=== PATIENT | male | born 1980 | race Caucasian/White ===

== ENCOUNTER 2018-04-23 10:54 | Emergency (ER) | payer OTHER ==
[2018-04-23] MEDS ORDERED: LIDOCAINE 1%/EPINEPHRINE INJ 20 ML VIAL ONE (11:30)
[2018-04-23] MEDS ORDERED: LIDOCAINE 1%/EPINEPHRINE INJ 20 ML VIAL INJ ONE (11:31)
[2018-04-23] MEDS ORDERED: MORPHINE SULFATE 10 MG/ML INJ ONE (11:42)
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
[2018-04-23] MEDS ORDERED: MORPHINE SULFATE 10 MG/ML INJ IV ONE ×2 (11:55→12:25)
--- NOTE | 2018-04-23 12:33 | RADIOLOGY REPORT (SQ) ---
EXAM DESCRIPTION: KNEE LEFT 4 VIEW COMPLETED DATE/TIME: 04/23/2018 12:18 pm REASON FOR STUDY: 15, chainsaw cut above knee COMPARISON: None. NUMBER OF VIEWS: Four views. TECHNIQUE: AP, lateral, and both oblique radiographic images acquired of the left knee. LIMITATIONS: None. FINDINGS: MINERALIZATION: Normal. BONES: No acute fracture or dislocation. No worrisome bone lesions. JOINT: No effusion. SOFT TISSUES: No soft tissue swelling. No radio-opaque foreign body. OTHER: No other significant finding. IMPRESSION: NEGATIVE STUDY OF THE LEFT KNEE. NO RADIOGRAPHIC EVIDENCE OF ACUTE INJURY. TECHNICAL DOCUMENTATION: JOB ID: [id number] [email or web address]- All Rights Reserved Reading location - IP/workstation name: [email or web address]
[2018-04-23] MEDS ORDERED: BACITRACIN ZINC OINTMENT 15 GM TP ONE (12:51)
[2018-04-23] MEDS ORDERED: CEPHALEXIN 500 MG CAPSULE PO ONE (12:51)
[2018-04-23 13:07] VITALS: BP 139/86
== END 2018-04-23 13:15 | disposition home or self-care (01) ==
LOC: ER 10:54
DX: S71.112A Laceration without foreign body, left thigh, initial encounter (principal); W29.3XXA Contact with powered garden and outdoor hand tools and machinery, initial encounter; Y93.H9 Activity, other involving exterior property and land maintenance, building and construction; Y99.0 Civilian activity done for income or pay
CPT/HCPCS: 99283; 73564; 12002; L1830; J3490; J2270

== ENCOUNTER 2018-05-19 12:55 | Emergency (ER) | payer SELFPAY ==
--- NOTE | 2018-05-19 13:24 | ER Document Report ---
ED General - General Chief Complaint: Overdose Stated Complaint: OVERDOSE Time Seen by Provider: 05/19/18 13:01 Mode of Arrival: Stretcher Information source: Patient - HPI Patient complains to provider of: Overdose Onset: Other - 37-year-old man with a past medical history significant for cocaine addiction and abuse in the past that presents for evaluation of an accidental overdose of what he thought was Percocet. Notes that he met a stefano at the [employer] while attempting to go to [place] for work, he was having back pain which she has chronically, the gentleman noted that he had some Percocet which might help with his symptoms, he subsequently snorted what was supposed to be $20 worth of Percocet however thereafter does not recall what happened, he woke up and had a syringe near his arm which he says he is never done before. Since that time he is feeling okay. Denies any other symptoms at this time any desire to harm himself or intent. - Related Data Allergies/Adverse Reactions: No Known Allergies Allergy (Unverified 04/23/18 12:09) Past Medical History - General Information source: Patient - Social History Smoking Status: Never Smoker Frequency of alcohol use: None Drug Abuse: None Family History: Reviewed & Not Pertinent Patient has suicidal ideation: No Patient has homicidal ideation: No Renal/ Medical History: Denies: Hx Peritoneal Dialysis Review of Systems - Review of Systems -: Yes All other systems reviewed and negative Physical Exam - Vital signs Vitals: Temp Pulse Resp BP Pulse Ox 97.8 F 95 14 129/83 H 98 05/19/18 13:14 05/19/18 13:14 05/19/18 13:14 05/19/18 13:14 05/19/18 13:14 - General General appearance: Appears well In distress: None - HEENT Head: Normocephalic Eyes: Normal Conjunctiva: Normal Cornea: Normal Extraocular movements intact: Yes Eyelashes: Normal Pupils: PERRL - Respiratory Respiratory status: No respiratory distress Chest status: Nontender Breath sounds: Normal Chest palpation: Normal - Cardiovascular Rhythm: Regular Heart sounds: Normal auscultation Murmur: No - Abdominal Inspection: Normal Distension: No distension Tenderness: Nontender - Back Back: Normal - Extremities General upper extremity: Normal inspection, Nontender, Normal ROM, Normal strength General lower extremity: Normal inspection, Nontender, Normal ROM, Normal strength - Neurological Neuro grossly intact: Yes Cognition: Normal Orientation: AAOx4 [place] Coma Scale Eye Opening: Spontaneous [place] Coma Scale Verbal: Oriented [place] Coma Scale Motor: Obeys Commands [place] Coma Scale Total: 15 Speech: Normal Cranial nerves: Normal Motor strength normal: LUE, RUE, LLE, RLE - Psychological Associated symptoms: Normal affect Course - Re-evaluation Re-evalutation: 05/19/18 14:12 37-year-old man that presents after an accidental overdose having snorted Percocet. He notes that he is taking narcotics in the past and not have very overdose. Denies any desire to harm himself. Denies any desire to harm anyone else. Did receive Narcan in the field. Will plan for an observation period in the emergency department with reassessment and probable discharge. 05/19/18 14:59 Patient underwent an observation period in the emergency department in which he was hemodynamically stable without any desaturations and had a normal level of consciousness. It is likely that he took some fentanyl-containing product. He denies any self-injurious intent it was accidental in nature. Because of his well appearance and response appropriately after administration of naloxone will plan for discharge home with return precautions notably there is any indication for IVC at this time. - Vital Signs Vital signs: Temp Pulse Resp BP Pulse Ox 97.8 F 95 23 H 129/83 H 99 05/19/18 13:14 05/19/18 13:14 05/19/18 13:28 05/19/18 13:14 05/19/18 13:28 Discharge - Discharge Condition: Good Disposition: HOME, SELF-CARE Instructions: Instructions for Home Care Following a Drug Overdose ([facility]) Additional Instructions: Your seen today in the emergency department after accidentally snorting too much heroin. You should follow-up with whatever support system he like to use moving forward , narcotics anonymous or whatever you choose.
[2018-05-19 14:32] VITALS: BP 110/82
== END 2018-05-19 14:32 | disposition home or self-care (01) ==
LOC: ER 12:55
DX: F11.10 Opioid abuse, uncomplicated (principal); T50.901A Poisoning by unspecified drugs, medicaments and biological substances, accidental (unintentional), initial encounter; X58.XXXA Exposure to other specified factors, initial encounter
CPT/HCPCS: 99284

== ENCOUNTER 2018-05-20 16:30 | Emergency (ER) | payer SELFPAY ==
[2018-05-20 16:35] VITALS: BP 115/65
[2018-05-20] MEDS ORDERED: DOXYCYCLINE HYCLATE 100 MG TABLET PO ONE (16:58)
--- NOTE | 2018-05-20 16:58 | ER Document Report ---
HPI - HPI Patient complains to provider of: insect bites Onset: This morning Quality of pain: Other - sore Severity: Moderate Pain Level: 3 Context: Patient presents emergency department with complaints of multiple insect bites. Patient reports this started a few days ago. 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 Patient reports he was at home H yesterday for overdose from fentanyl. He reports history of IV drug use. Reports he has been evaluated for HIV within the past 6 months and he was negative. Denies other symptoms such as fever vomiting diarrhea. pt is insisting on oral antibiotics Associated Symptoms: None Exacerbated by: Denies Relieved by: Denies Similar symptoms previously: No Recently seen / treated by doctor: Yes Past Medical History - General Information source: Patient - Social History Smoking Status: Current Every Day Smoker Cigarette use (# per day): Yes Frequency of alcohol use: Occasional Drug Abuse: Heroin, Other - iv fentanyl Occupation: tree Family History: Reviewed & Not Pertinent Patient has suicidal ideation: No Patient has homicidal ideation: No - Medical History Medical History: Negative Renal/ Medical History: Denies: Hx Peritoneal Dialysis Surgical Hx: Negative Vertical Provider Document - CONSTITUTIONAL Agree With Documented VS: Yes Exam Limitations: No Limitations General Appearance: WD/WN, No Apparent Distress - INFECTION CONTROL TRAVEL OUTSIDE OF THE [place] IN LAST 30 DAYS: No - HEENT HEENT: Atraumatic, Normocephalic. negative: Conjuctival Injection, Pharyngeal Erythema - NECK Neck: Normal Inspection, Supple - RESPIRATORY Respiratory: Breath Sounds Normal - CARDIOVASCULAR Cardiovascular: Regular Rate - MUSCULOSKELETAL/EXTREMETIES Musculoskeletal/Extremeties: MAEW, FROM, Non-Tender - NEURO Level of Consciousness: Awake, Alert, Appropriate Motor/Sensory: No Motor Deficit - DERM Integumentary: Warm, Dry Adult Front & Back Diagram: 1 - small folliculitis right nare, not fluctuant no induration 2 - Folliculitis no warmth not fluctuant no induration 3 - Several small circular discolored areas no pustules no warmth no discharge not fluctuant no induration Course - Re-evaluation Re-evalutation: 05/20/18 17:03 Dr. Wendi Melo in to assess reports its folliculitis and treat with Doxy. Patient informed. Dictation of this chart was performed using voice recognition software; therefore, there may be some unintended grammatical errors. - Vital Signs Vital signs: Temp Pulse Resp BP Pulse Ox 98 F 78 18 115/65 99 05/20/18 16:34 05/20/18 16:34 05/20/18 16:34 05/20/18 16:34 05/20/18 16:34 Discharge - Discharge Clinical Impression: Folliculitis Condition: Stable Disposition: HOME, SELF-CARE Instructions: Doxycycline ([facility]), Folliculitis ([facility]) Additional Instructions: *You have been treated for folliculitis *Take medication as prescribed *Monitor your skin for signs of infection such as increasing pain, redness, swelling, warmth *Keep the areas clean *Follow up with a primary care provider within one week *Return to ED for signs of infection, worsening condition, changes, needs Prescriptions: Doxycycline Monohydrate [Monodox] 100 mg PO BID #20 capsule
== END 2018-05-20 17:11 | disposition home or self-care (01) ==
LOC: ER 16:30
DX: L73.9 Follicular disorder, unspecified (principal); F17.210 Nicotine dependence, cigarettes, uncomplicated; F11.10 Opioid abuse, uncomplicated
CPT/HCPCS: 99281

== ENCOUNTER 2018-12-28 02:47 | Emergency (ER) | payer OTHER ==
--- NOTE | 2018-12-28 04:00 | ER Document Report ---
Addendum entered and electronically signed by DEEDEE GUZMAN LCSWA 12/29/18 14:44: Discharge - Discharge Clinical Impression: Suicidal ideations, Renal insufficiency, Bipolar 1 disorder, Substance abuse Contusion of rib on right side Qualifiers: Encounter type: initial encounter Qualified Code(s): S20.211A - Contusion of right front wall of thorax, initial encounter Condition: Stable Disposition: HOME, SELF-CARE Additional Instructions: You have been evaluated both medical and behavioral health teams have been deemed appropriate for discharge. You have been provided 3 days worth of your home medications: Seroquel 400 mg nightly and 200 every morning, Paxil 30 mg twice daily, Trileptal 300 mg 3 times daily and gabapentin 300 mg 3 times daily; take as directed and follow-up with your outpatient mental health provider. Also been provided a local resource list of area providers including mobile crisis contact information. NARCOTIC / OPIOD ABUSE: Narcotics and opiods are pain-relieving drugs that are often abused. They are addicting. Narcotics cause euphoria, but it often takes increasing amounts to "feel good" and avoid withdrawal symptoms. Overdose of narcotics causes small pupils, coma, and decreased breathing. It's a common cause of . Purity of street narcotics is unpredictable. Injection of narcotics is risky for abscesses, endocarditis (heart infection), pneumonia, and AIDS. Withdrawal from narcotics causes goose bumps, watery mouth, sweating, nasal congestion, muscle aches, abdominal cramps, vomiting, and diarrhea. There's often restlessness and confusion. Treatment programs are available, but you must make the decision to quit. Medication (such as clonidine) can be prescribed to control the symptoms of withdrawal. AMPHETAMINE / METHAMPHETAMINE ABUSE: Amphetamines are addicting stimulants. Amphetamines overstimulate the nervous system and give a false feeling of power and mastery. These drugs may be obtained as prescription pills for weight loss, narcolepsy, or attention-deficit disorder. More often they're bought as an illegal street drug, methamphetamine (crank, crystal, speed). Using amphetamines repeatedly can lead to serious medical problems including malnutrition, severe depression, and paranoia. It can take increasing amounts to feel good. Eventually, there will be a "burn out." When you go off amphetamines there is a period of depression that may last for weeks or even months. High doses of amphetamines can cause seizures, confusion, hallucinations, delusions, high blood pressure, muscle damage, heart damage, or sudden . Many times these deadly complications occur even with "normal" doses. Injection of amphetamines is risky for developing abscesses, endocarditis (heart infection), pneumonia, and AIDS. Withdrawal from amphetamines often causes anxiety, depression, and drug cravings. Some users become paranoid and psychotic. There may be cramps, nausea, and vomiting. Many treatment programs are available, but you must make the decision to quit. Medication can be prescribed to control the symptoms of amphetamine toxicity (beta blockers or benzodiazepines). Withdrawal symptoms may require tranquilizers. DEPRESSION: Your evaluation reveals that you have mental depression. While symptoms may be vague, they often include disturbance of sleep, fatigue, loss of appetite, and general loss of interest in life. While depression may be a side effect of drugs, or a reaction to a major change in your life, many cases have no known cause. If depression is acute, and related to a major loss in your life, you can expect it to clear completely with time. If you have been depressed a long time, are prone to repeated bouts of depression or low mood, or have been thinking of suicide, get help. Depression can be treated with anti-depressant medication and counselling. Long-term depression will often take a few weeks to clear, even with appropriate medication. Follow-up care is important. SUICIDAL IDEATION: Suicidal ideation is a common medical term for thoughts about suicide, which may be as detailed as a formulated plan, without the suicidal act itself. Although most people who undergo suicidal ideation do not commit suicide, some go on to make suicide attempts. The range of suicidal ideation varies greatly from fleeting to detailed planning, role playing, and unsuccessful attempts. While thoughts about suicide are common, most people do not carry out serious actions to commit suicide. Based upon your evaluation and discussion with you, we do not believe you are currently at risk to act upon your thoughts of suicide. You have agreed to return to the Emergency Department, at any time, if you feel inclined to act upon your suicidal thoughts. FOLLOW-UP CARE: If you have been referred to a physician for follow-up care, call the physicians office for an appointment as you were instructed or within the next two days. If you experience worsening or a significant change in your symptoms, notify the physician immediately or return to the Emergency Department at any time for re-evaluation. Referrals: [facility] [Outside] - Follow up as needed Original Note: ED General - General Chief Complaint: Suicidal Ideation Stated Complaint: BACK PAIN Time Seen by Provider: 12/28/18 03:45 TRAVEL OUTSIDE OF THE [place] IN LAST 30 DAYS: No - HPI Notes: Patient is a 38-year-old male that presents to the emergency department for ch ief complaint of suicidal ideation and right rib pain. Patient states he has been off his Trileptal, Seroquel and Paxil for the last few weeks because he ran out of his prescriptions. He has had increased suicidal ideations since being off his medications. Patient states he did cut himself in the left AC with a razor blade a few weeks ago. That was an attempt to kill himself. Patient states he is currently contemplating cutting himself with a razor blade again and feels actively suicidal. He states yesterday while at work he was cutting a tree and fell 7 to 10 feet landing on his right side. He denies any head injury. He denies any numbness or weakness. He is having pain in his right lower posterior rib cage which is worse with movement and deep inspiration. He denies any chest pain or shortness of breath. He has not taken any medication at home for pain Past Medical History: Anxiety, depression Past Surgical History: Reviewed in chart Social History: Reviewed in chart Family History: Reviewed and noncontributory for presenting illness Allergies: Reviewed, see documented allergy list. REVIEW OF SYSTEMS: CONSTITUTIONAL : No fever No chills No diaphoresis No recent illness EENT: No vision changes No congestion No sore throat CARDIOVASCULAR: No chest pain No palpitations RESPIRATORY: No shortness of breath No cough Pain with breathing GASTROINTESTINAL: No abdominal pain No nausea No vomiting No diarrhea GENITOURINARY: No dysuria No hematuria No difficulty urinating MUSCULOSKELETAL: back pain Right rib pain No leg pain No arm pain SKIN: No rashes No lesions LYMPHATIC: No swollen, enlarged glands. NEUROLOGICAL: No lightheadedness No headache No weakness No paresthesias PSYCHIATRIC: No anxiety No depression PHYSICAL EXAMINATION: Vital signs reviewed, nursing noted reviewed. GENERAL: Appears uncomfortable, well-nourished and in no acute distress. HEAD: Atraumatic, normocephalic. EYES: Eyes appear normal, extraocular movements intact, sclera anicteric, conjunctiva are normal. ENT: nares patent, oropharynx clear without exudates. Moist mucous membranes. NECK: Normal range of motion, supple without lymphadenopathy LUNGS: Breath sounds clear to auscultation bilaterally and equal. No wheezes rales or rhonchi. HEART: Regular rate and rhythm without murmurs ABDOMEN: Soft, nontender, normoactive bowel sounds. No rebound, guarding, or rigidity. No masses appreciated. EXTREMITIES: Nontender, good range of motion, no pitting or edema. Back: No midline thoracic or lumbar tenderness, no lumbar paraspinal tenderness, normal range of motion, tenderness to palpation of posterior right rib cage with no flail segment or crepitus NEUROLOGICAL: No focal neurological deficits. Moves all extremities spontaneously Motor and sensory grossly intact on exam. PSYCH: Flat affect, suicidal SKIN: Warm, Dry, normal turgor, linear laceration to left AC with 0.5 cm of wound gaping, appears older and healing appropriately without surrounding erythema - Related Data Allergies/Adverse Reactions: No Known Allergies Allergy (Verified 12/28/18 07:33) Past Medical History - Social History Smoking Status: Unknown if Ever Smoked Family History: Reviewed & Not Pertinent Renal/ Medical History: Denies: Hx Peritoneal Dialysis Physical Exam - Vital signs Vitals: Temp Pulse Resp BP Pulse Ox 98.1 F 128 H 20 167/86 H 96 12/28/18 02:54 12/28/18 02:54 12/28/18 02:54 12/28/18 02:54 12/28/18 02:54 Course - Re-evaluation Re-evalutation: 12/28/18 04:00 Vitals reviewed. Nursing notes reviewed. Patient has a large laceration to his left AC which was self-inflicted reportedly a few weeks ago. It does appear to be healing well by secondary intention with no signs of infection. Patient has no lacerations that appear new in the last 24 hours. He does have tenderness to his right posterior rib cage with no spinal tenderness. Patient is no focal neurologic deficits and is able to ambulate without difficulty. Imaging of his right rib cage will be obtained to evaluate for injury. He is adamant that he did not hit his head during his fall and has no external signs of head injury to necessitate CT scan of the brain. Lab work will be obtained for medical clearance. Patient is actively suicidal and will be placed on IVC petition for further psych evaluation. 12/28/18 05:11 X-ray of patient's rib shows no acute fracture. - Vital Signs Vital signs: Temp Pulse Resp BP Pulse Ox 97.7 F 108 H 20 106/55 L 97 12/28/18 22:20 12/28/18 22:20 12/28/18 22:20 12/28/18 22:20 12/28/18 22:20 - Laboratory Result Diagrams: 12/28/18 05:55 12/28/18 05:35 Laboratory results interpreted by me: 12/28/18 12/28/18 12/28/18 05:35 05:50 05:50 WBC RDW Absolute Neutrophils BUN 22 H Creatinine 1.57 H Est GFR (Non-Af Amer) 49 L Glucose 122 H Calcium 10.3 H AST 63 H Creatine Kinase 816 H Total Protein 9.0 H Urine Protein 30 H Urine Ketones TRACE H Urine Ascorbic Acid 20 H Salicylates < 1.0 L Acetaminophen < 10 L 12/28/18 05:55 WBC 12.1 H RDW 15.3 H Absolute Neutrophils 9.0 H BUN Creatinine Est GFR (Non-Af Amer) Glucose Calcium AST Creatine Kinase Total Protein Urine Protein Urine Ketones Urine Ascorbic Acid Salicylates Acetaminophen Discharge - Discharge Clinical Impression: Suicidal ideations, Renal insufficiency Contusion of rib on right side Qualifiers: Encounter type: initial encounter Qualified Code(s): S20.211A - Contusion of right front wall of thorax, initial encounter Condition: Stable Disposition: PSYCH HOSP/UNIT
[2018-12-28] MEDS ORDERED: OXYCODONE-ACETAMINOPHEN 5-325 MG TABLET PO ONE ×3 (04:02→18:16)
--- NOTE | 2018-12-28 04:12 | RADIOLOGY REPORT (SQ) ---
EXAM DESCRIPTION: XR RIBS UNILATERAL WITH CHEST COMPLETED DATE/TME: 12/28/2018 03:55 CLINICAL HISTORY: 38 years, Male, trauma COMPARISON: None. NUMBER OF VIEWS: 4 TECHNIQUE: Frontal view chest 3 views right ribs LIMITATIONS: None. FINDINGS: Heart size normal. Lungs clear. No pneumothorax. Negative for fracture. Soft tissues are unremarkable IMPRESSION: Negative exam copyright 2010 [employer]- All Rights Reserved
[2018-12-28 06:05] LABS: ABSOLUTE LYMPHOCYTES (AUTO) 1.8 10^3/uL (0.5-4.7); ABSOLUTE MONOCYTES (AUTO) 1.2 10^3/uL (0.1-1.4); BASOPHILS % (AUTO) 0.2 % (0-2); EOSINOPHILS % (AUTO) 0.2 % (0-6); HEMATOCRIT 40.3 % (37.9-51.0); HEMOGLOBIN 13.5 g/dL (13.5-17.0); LYMPHOCYTES % (AUTO) 14.8 % (13-45); MEAN CORPUSCULAR HEMOGLOBIN 30.8 pg (27.0-33.4); MEAN CORPUSCULAR HGB CONC 33.5 g/dL (32.0-36.0); MEAN CORPUSCULAR VOLUME 92 fl (80-97); MONOCYTES % (AUTO) 10.3 % (3-13); PLATELET COUNT 331 10^3/uL (150-450); RED BLOOD COUNT 4.38 10^6/uL (4.35-5.55); RED CELL DISTRIBUTION WIDTH 15.3 % (11.5-14.0); SEGMENTED NEUTROPHILS % (AUTO) 74.5 % (42-78); TOTAL CELLS COUNTED % (AUTO) 100 %; WHITE BLOOD COUNT 12.1 10^3/uL (4.0-10.5)
[2018-12-28 06:11] LABS: ALANINE AMINOTRANSFERASE 46 U/L (21-72); ALKALINE PHOSPHATASE 119 U/L (38-126); ANION GAP 15 (5-19); ASPARTATE AMINO TRANSFERASE 63 U/L (17-59); BILIRUBIN,DIRECT 0.3 mg/dL (0.0-0.4); BILIRUBIN,TOTAL 0.5 mg/dL (0.2-1.3); BLOOD UREA NITROGEN 22 mg/dL (7-20); CALCIUM 10.3 mg/dL (8.4-10.2); CARBON DIOXIDE 24 mmol/L (22-30); CHLORIDE 105 mmol/L (98-107); GLUCOSE 122 mg/dL (75-110); POTASSIUM 4.2 mmol/L (3.6-5.0); SODIUM 143.5 mmol/L (137-145)
[2018-12-28 06:13] LABS: ACETAMINOPHEN < 10 ug/mL (10-30); ALCOHOL < 10 mg/dL (NONE DETECTED); SALICYLATE < 1.0 mg/dL (2.0-20.0)
[2018-12-28 06:15] LABS: APPEARANCE,URINE CLOUDY; BILIRUBIN,URINE NEGATIVE (NEGATIVE); COLOR,URINE AMBER; GLUCOSE, URINE NEGATIVE (NEGATIVE); KETONES,URINE TRACE mg/dL (NEGATIVE); LEUKOCYTE ESTERASE,URINE NEGATIVE (NEGATIVE); NITRITE,URINE NEGATIVE (NEGATIVE); PROTEIN,URINE 30 mg/dL (NEGATIVE); URINE SPECIFIC GRAVITY 1.027; UROBILINOGEN,URINE NEGATIVE mg/dL (<2.0)
[2018-12-28 06:31] LABS: URINE BARBITURATES SCREEN NEGATIVE; URINE BENZODIAZEPINES SCREEN NEGATIVE; URINE COCAINE SCREEN NEGATIVE; URINE MARIJUANA (THC) SCREEN NEGATIVE; URINE METHADONE SCREEN NEGATIVE; URINE PHENCYCLIDINE SCREEN NEGATIVE
[2018-12-28] MEDS ORDERED: NORMAL SALINE 1000 ML 1,000 ML IV ONE (08:04)
[2018-12-28 08:34] LABS: CREATINE KINASE 816 U/L (55-170)
--- NOTE | 2018-12-28 13:36 | ER Document Report ---
Doctor's Note Notes: 12/28/18 13:34 Patient seen and examined. Patient is currently being held on a psychiatric hold after admitting to being suicidal. He had come in actually after a fall for some rib pain admitted that he had slashed his left AC region a few weeks ago. Today I was called into the room to evaluate the patient as he had picked open his laceration. He states he did this "because they have not given me my psych meds." He really will not be forthcoming with me any more than that. Physical exam is performed. Patient is slightly agitated, but stoic and his facial expressions. Head is neuropsych and atraumatic. Pupils are equal round reactive to light. Oral mucosa is moist. Heart regular rate and rhythm, lungs are clear to auscultation bilaterally. Patient has an 8 cm laceration that looks to be healing by secondary intention in the left AC. No active bleeding. No obvious foreign body. Plan:, The patient's wound was thoroughly cleansed and explored. It is not a good candidate for closure at this time given the amount of healing that is already done. A copious amount of irrigation was performed, then the area was dressed with bacitracin and Covan to try and avoid the patient interference at this point further. Patient was warned that any further attempts at self-harm would require restraining him. He voiced understanding to this. Psychiatric medications have been ordered on this patient. Awaiting psychiatric input.
[2018-12-28] MEDS ORDERED: OLANZAPINE 5 MG TABLET PO ONE (13:41)
[2018-12-28] MEDS ORDERED: BENZTROPINE MESYLATE 1 MG TABLET PO ONE (13:41)
[2018-12-28] MEDS: OLANZAPINE 5 MG TABLET PO SCH (18:14)
--- NOTE | 2018-12-28 19:38 | PSYCHOLOGICAL NOTE ---
Psych Note - Psych Note Date seen by psych provider: 12/28/18 Time seen by psych provider: 08:03 - Chart review at 0803. Evaluation from [phone]. Psych Note: Presenting Problem: 24 Hour IVC Petition, SI with plan to cut self, cut left arm inner elbow where bends 3 weeks ago which has a huge gash/wound, he has a scar above that wound from cutting self a year ago and he recently lost his job (fell 7-10 feet landing on right side and complaining of back pain). UDS positive for opiates and meth (he admitted to meth use yesterday). he noted history of Bipolar and PTSD (childhood trauma). He stated he is prescribed Trileptal, Paxil and Seroquel but ran out a few weeks ago (was doing work om [place] so went to a place called [facility] and now back in [place]). He reported using alcohol when he does not take or have medications. He admitted to previous hospitalizations (last on 3-4 months ago in [place]). He endorsed current SI, admitted to previous SI and commented "it was due to shooting up drugs and drinking." Patient seen 05/19/18 for OD after he snorted too much heroin which he thought was Percocet (doing due to back pain then) and admitted to history of cocaine use. He presented fidgety and unable to sit still. He complained of back and other pain. Diagnosis: Polysubstance Use (History: Opiates, Cocaine and Current) 292.9 (F11.99) Unspecified Opioid Related Disorder 292.9 (F15.99) Unspecified Methamphetamine Related Disorder 309.81 (F43.10) Posttraumatic Stress Disorder by History per patient 296.80 (F31.9) Unspecified Bipolar and Related Disorder by History per patient Medication recommendations made by the psychiatric medical provider, Dr. Blessing MD., includes: Add Zyprexa 5MG twice a day for mood stabilization/impulse control Add Cogentin 1MG daily to curb tremor side effects often associated with antipsychotic medications Impression/Plan: Recommendation to complete full IVC paperwork (he had been on a 24 Hour IVC Petition). He reported he ran out of his medications of Trileptal, Paxil and Seroquel so has not been taking for the past 2 weeks. His last provider was at [facility] in [place], [place] where he had been staying for work. He admitted to meth use yesterday after not doing it in awhile. He has a history of cocaine use per an May 2018 ED visit. He endorsed current SI with plan to cut self. He has a gash/open wound on his left arm opposite side of elbow where arm bends which he said he cut with a razor blade 2-3 weeks ago. He has a scar on the same arm above that where he said he cut himself over a year ago. Consulted with Dr. Ludwig regarding the management and care of patient. ED Physician in agreement with recommendations.
[2018-12-28] MEDS ORDERED: IBUPROFEN 600 MG TABLET PO ONE (23:04)
[2018-12-29 07:54] LABS: ANION GAP 11 (5-19); BLOOD UREA NITROGEN 23 mg/dL (7-20); CALCIUM 9.7 mg/dL (8.4-10.2); CARBON DIOXIDE 26 mmol/L (22-30); CHLORIDE 103 mmol/L (98-107); CREATINE KINASE 495 U/L (55-170); GLUCOSE 91 mg/dL (75-110); SODIUM 140.2 mmol/L (137-145)
[2018-12-29] MEDS ORDERED: BENZTROPINE MESYLATE 1 MG TABLET PO SCH (10:00)
[2018-12-29] MEDS: OLANZAPINE 5 MG TABLET PO SCH (10:48)
--- NOTE | 2018-12-29 11:09 | ER Document Report ---
Doctor's Note Notes: 12/29/18 11:07 Patient seen and examined. This morning complains of rib pain from his fall. He asks me continually for some pain medication. He currently denies suicidal or homicidal ideation. He states he is just worried about how he is going to be able to get his medications. No acute events overnight per nursing. Physical exam reveals a 38-year-old male in no acute distress. Is normocephalic atraumatic. Pupils are equal round, reactive to light. Heart is regular rate and rhythm, lungs are clear to oscillation bilaterally. Patient winces with even the lightest touch of his chest wall. Chest wall excursion is equal bilaterally. Skin is warm and dry. Assessment and plan as per psychiatry. Will defer to them. Patient denies currently being at risk to himself. His x- ray had revealed no signs of significant fracture or lung injury. He continues to be stable. Opiates discontinued in light of his history of opiate addiction. He has been treated with Tylenol and Motrin as needed. 12/29/18 14:52 Patient seen again by psychiatry. He states he is not suicidal. He is just worried about his medications. He states that he left them with his father. The patient was given a dose of his medicines here. Written a 3-day prescription. He is to follow-up as per psych recommendations.
[2018-12-29] MEDS ORDERED: ACETAMINOPHEN 325 MG TABLET PO ONE (11:18)
--- NOTE | 2018-12-29 14:41 | PSYCHOLOGICAL NOTE ---
Psych Note - Psych Note Date seen by psych provider: 12/29/18 Time seen by psych provider: 08:00 - 0810 Second visit [id number] Psych Note: Reason for Consult: Second evaluation Patient is a 38-year-old male that presents to the emergency department for chief complaint of suicidal ideation and right rib pain. Patient states he has been off his Trileptal, Seroquel and Paxil for the last few weeks because he ran out of his prescriptions. Check-in conducted with patient Patient's mood is irritable with congruent affect. He reports if he can get back on his medications he will be fine. He states that he relapsed because he ran out of his medications. He also reports extreme back pain from falling out of a tree. He states he is currently here from [place] because of work. He reports he is a little worried about not being able to return to work because of his injury. Chart review conducted Patient received prescriptions on 12/14/2018 for Seroquel 400 mg nightly, Seroquel 200 mg every morning, Paxil 30 mg twice daily, Trileptal 300 mg 3 times daily and gabapentin 300 mg 3 times daily. Behavioral health team contacted the [facility] pharmacy in [facility] ([phone]) to verify patient has available prescriptions. Per the pharmacy, the patient picked up his medications on 12/14/2018. Clinician spoke with patient, he confirms he picked up his medications however thought that he did not bead picker his full 30 days. When it was identified he did he reports that he must have left them in his father's car when he dropped them off 3 days ago to work. No medication recommendations at this time Diagnosis: Substance abuse; Opioid and methamphetamine PTSD by History per patient Bipolar Disorder by History per patient Impression/Plan: Patient is recommended for rescind of IVC; patient no longer meets IVC criteria per [place] GS 122C. The behavioral health team contacted the [facility] in [facility] and [facility], and [facility]; there are currently no beds available for detox. He reported he ran out of his medications of Trileptal, Paxil and Seroquel so has not been taking for the past 2 weeks; however, patient did bead picker his medications on 12/14/2018. Patient was provided resource list of area providers including mobile crisis contact information for further assistance with substance abuse treatment. Dr. Ludwig was consulted to care management this patient; attending physicians in agreement with recommendations and disposition.
[2018-12-29] MEDS ORDERED: GABAPENTIN 300 MG CAPSULE PO ONE (14:48)
[2018-12-29] MEDS ORDERED: OXCARBAZEPINE 150 MG TABLET PO ONE (14:48)
[2018-12-29] MEDS ORDERED: QUETIAPINE FUMARATE 100 MG TABLET PO ONE (14:48)
[2018-12-29] MEDS ORDERED: PAROXETINE HCL 20 MG TABLET PO ONE (14:48)
[2018-12-29 15:12] VITALS: BP 108/72
--- NOTE | 2018-12-29 16:13 | EKG REPORT ---
SEVERITY:- NORMAL ECG - SINUS RHYTHM : Confirmed by: Nieves Titus MD 29-Dec-2018 16:13:09
--- NOTE | 2018-12-29 16:14 | EKG REPORT ---
SEVERITY:- DEFECTIVE ECG - SINUS RHYTHM.BASELINE ARTIFACT .REPEAT EKG : Confirmed by: Nieves Titus MD 29-Dec-2018 16:14:04
== END 2018-12-29 15:12 | disposition home or self-care (01) ==
LOC: ER 02:47
DX: F31.9 Bipolar disorder, unspecified (principal); T42.1X6A Underdosing of iminostilbenes, initial encounter; T43.596A Underdosing of other antipsychotics and neuroleptics, initial encounter; T43.226A Underdosing of selective serotonin reuptake inhibitors, initial encounter; Z91.128 Patient's intentional underdosing of medication regimen for other reason; Z91.14 Patient's other noncompliance with medication regimen; S20.211A Contusion of right front wall of thorax, initial encounter; R07.81 Pleurodynia; W17.89XA Other fall from one level to another, initial encounter; Y93.H9 Activity, other involving exterior property and land maintenance, building and construction; Y99.0 Civilian activity done for income or pay; N28.9 Disorder of kidney and ureter, unspecified; S51.012A Laceration without foreign body of left elbow, initial encounter; X78.8XXA Intentional self-harm by other sharp object, initial encounter; M54.9 Dorsalgia, unspecified; F11.10 Opioid abuse, uncomplicated; F15.10 Other stimulant abuse, uncomplicated
CPT/HCPCS: 93005 ×2; 99285; 96360; 36415; 80307 ×4; 82550; 85025; 80048; 80053; 81001; 71101; 93010 ×2; J7030